=== PATIENT | female | born 2000 | race Caucasian/White ===

== ENCOUNTER 2018-09-15 16:28 | Emergency (ER) | payer BC ==
[2018-09-15] MEDS ORDERED: Rabies Vaccine Human 2.5 UNITS VIAL IM ONE (17:45)
[2018-09-15] MEDS ORDERED: Adacel (T-DAP) 0.5 ML SYRINGE ONE (18:04)
== END 2018-09-15 19:00 | disposition home or self-care (01) ==
LOC: ERS 16:28 → ER/OP 16:28
DX: Z20.3 Contact with and (suspected) exposure to rabies (principal); Z23 Encounter for immunization
CPT/HCPCS: 90376; 90471; 90472; 90675; 90715; 96372

== ENCOUNTER → 2018-09-18 | Day surgery (SDC) | payer BC ==
[~2018-09-18] MED LIST: Rabies Vaccine Human 2.5 UNITS VIAL ONE
== END ==
LOC: SDC/OP 12:13
PROVIDERS: ATTEND Emergency Medicine
DX: Z29.14 Encounter for prophylactic rabies immune globulin (principal)
CPT/HCPCS: 90471; 90675

== ENCOUNTER → 2018-09-22 | Day surgery (SDC) | payer BC | LOC: SCSER/OP 12:47 | PROVIDERS: ATTEND Emergency Medicine | DX: Z29.14 Encounter for prophylactic rabies immune globulin (principal) | CPT/HCPCS: 90471; 90675 ==

== ENCOUNTER → 2018-09-29 | Day surgery (SDC) | payer BC | LOC: ER/OP 13:19 | PROVIDERS: ATTEND Emergency Medicine | DX: Z29.14 Encounter for prophylactic rabies immune globulin (principal) | CPT/HCPCS: 90471; 90675 ==

== ENCOUNTER → 2018-10-13 | Day surgery (SDC) | payer BC | LOC: SCSER/OP 12:47 | PROVIDERS: ATTEND Emergency Medicine | DX: Z29.14 Encounter for prophylactic rabies immune globulin (principal) | CPT/HCPCS: 90675 ==